=== PATIENT | female | born 1980 | race Caucasian/White ===

== ENCOUNTER 2019-11-09 16:53 | Emergency (ER) | payer BC ==
[~2019-11-09] VITALS: Ht 170.2 cm; Wt 77.1 kg
[2019-11-09] MEDS ORDERED: NACL 0.9% 1,000 ML IV ONE (17:00)
[2019-11-09] MEDS ORDERED: IPRATROPIUM/ALBUTEROL SULFATE 3 ML AMPUL.NEB (DUONEB) INH ONE (17:00)
[2019-11-09] MEDS ORDERED: methylPREDNISolone SOD SUCC/PF 62.5 MG/ML VIAL IVP ONE (17:00)
[2019-11-09] MEDS ORDERED: MAGNESIUM SULFATE 50 ML IV ONE (17:00)
[2019-11-09] MEDS ORDERED: IPRATROPIUM/ALBUTEROL SULFATE 3 ML AMPUL.NEB (DUONEB) ONE (17:19)
[2019-11-09 17:24] LABS: MEAN CORPUSCULAR HEMOGLOBIN 33 pg (27-31)
[2019-11-09 17:30] LABS: BASOPHILS # (AUTO) 0.1 K/uL (0.0-0.2); BASOPHILS % (AUTO) 0.6 % (0.0-2.0); HEMATOCRIT 41.1 % (36-48); HEMOGLOBIN 13.7 g/dL (12.0-16.0); LYMPHOCYTES # (AUTO) 3.7 K/uL (1.0-5.5); LYMPHOCYTES % (AUTO) 42.8 % (20.5-51.5); MEAN CORPUSCULAR HGB CONC 33 % (32-36); MEAN CORPUSCULAR VOLUME 99 fL (79.0-98.0); MONOCYTES # (AUTO) 0.5 K/uL (0.0-1.0); MONOCYTES % (AUTO) 6.3 % (1.7-9.3); NEUTROPHILS # (AUTO) 4.3 K/uL (1.8-7.7); NEUTROPHILS % (AUTO) 50.3 % (40.0-70.0); PLATELET COUNT (AUTO) 286 K/uL (130-430); RED BLOOD CELL COUNT(AUTO) 4.13 MIL/uL (4.2-6.2); RED CELL DISTRIBUTION WIDTH 13.1 % (9.0-15.0); WHITE BLOOD COUNT (AUTO) 8.6 K/uL (4.8-10.8)
[2019-11-09 17:32] LABS: CALCIUM 9.3 mg/dL (8.4-11.0); CREATININE 1.11 mg/dL (0.55-1.30)
[2019-11-09 17:38] LABS: TOTAL BILIRUBIN 0.8 mg/dL (0.0-1.0)
[2019-11-09 17:39] LABS: POTASSIUM 2.5 mmol/L (3.5-5.1)
[2019-11-09 17:57] VITALS: BP_SYST 135
[2019-11-09] MEDS ORDERED: KCL 20 mEq in 100 mL (PREMIX) 100 ML IV ONE (18:00)
[2019-11-09 19:47] VITALS: BP_SYST 118
== END 2019-11-09 19:47 | disposition home or self-care (01) ==
LOC: SED 16:53
DX: J45.909 Unspecified asthma, uncomplicated (principal)
CPT/HCPCS: 36415; 80053; 85025; 94640; 96365; 96368; 96375; 99284; J2930; J3475; J3480; J7030